=== PATIENT | male | born 1980 | race Caucasian/White ===

== ENCOUNTER 2017-10-08 21:08 | Emergency (ER) | payer OTHER ==
[~2017-10-08] VITALS: Ht 180.3 cm; Wt 83.9 kg
[~2017-10-08 21:08] MED LIST: ACETAMINOPHEN325 M1 PO; ATIVAN0.5 MG PO; MIRALAX17 GM PO; PERCOCET PO; VISTARIL 25 MG25 M1 PO
[2017-10-08] MEDS ORDERED: KEFLEX500 M1 PO (22:29)
[2017-10-08] MEDS ORDERED: NORCO 5-325 TA1 EACH PO (22:29)
== END 2017-10-08 22:49 | disposition home or self-care (01) ==
LOC: ER 21:08
DX: S61.241A Puncture wound with foreign body of left index finger without damage to nail, initial encounter (principal); W31.0XXA Contact with mining and earth-drilling machinery, initial encounter; Y93.89 Activity, other specified; Y92.89 Other specified places as the place of occurrence of the external cause; Y99.8 Other external cause status; Z88.5 Allergy status to narcotic agent; Z91.040 Latex allergy status

== ENCOUNTER 2019-06-27 18:15 | Emergency (ER) | payer OTHER ==
[~2019-06-27] VITALS: Ht 182.9 cm; Wt 90.7 kg
[~2019-06-27 18:15] MED LIST changes: +KEFLEX500 M1 PO; +NORCO 5-325 TA1 EACH PO
[2019-06-27 18:18] VITALS: BP 138/84
== END 2019-06-27 19:10 | disposition home or self-care (01) ==
LOC: ER 18:15
DX: S61.412A Laceration without foreign body of left hand, initial encounter (principal); Z91.040 Latex allergy status; Z88.6 Allergy status to analgesic agent; W26.8XXA Contact with other sharp object(s), not elsewhere classified, initial encounter; Y93.89 Activity, other specified; Y92.89 Other specified places as the place of occurrence of the external cause; Y99.8 Other external cause status

== ENCOUNTER 2020-05-24 15:54 | Emergency (ER) | payer OTHER ==
[~2020-05-24] VITALS: Ht 182.9 cm; Wt 99.8 kg
[2020-05-24] MEDS ORDERED: SERTRALINE HCL100 MG PO (16:01)
[2020-05-24 16:54] LABS: HEMATOCRIT 45.3 % (42.0-52.0); HEMOGLOBIN 15.4 gm/dL (14.0-18.0); MCH 28.8 pg (26.0-34.0); MCV 84.7 fL (80.0-100.0); RBC 5.34 mil/uL (4.50-6.00); RDW 14.7 % (10.5-14.5); WBC 5.8 thou/uL (4.0-11.0)
[2020-05-24 17:14] LABS: URINE BILIRUBIN NEGATIVE (Negative); URINE BLOOD NEGATIVE (Negative); URINE CLARITY CLEAR; URINE COLOR YELLOW; URINE GLUCOSE-RANDOM* NEGATIVE (Negative); URINE KETONES NEGATIVE (Negative); URINE LEUKOCYTES-REFLEX NEGATIVE (Negative); URINE NITRITE-REFLEX NEGATIVE (Negative); URINE PROTEIN (DIPSTICK) NEGATIVE (Negative); URINE SPECIFIC GRAVITY 1.015 (1.005-1.035); URINE UROBILINOGEN 0.2 E.U./dl (0.2-1.0)
[2020-05-24 17:15] LABS: CALCIUM 8.7 mg/dL (8.5-10.1)
[2020-05-24 17:21] LABS: ALBUMIN 4.1 g/dL (3.4-5.0); TOTAL BILIRUBIN 0.8 mg/dL (0.2-1.0)
[2020-05-24 17:43] VITALS: BP 122/71
== END 2020-05-24 17:48 | disposition home or self-care (01) ==
LOC: ER 15:54
PROVIDERS: Nurse Practitioner Family
DX: R10.13 Epigastric pain (principal); Z79.899 Other long term (current) drug therapy; Z91.040 Latex allergy status; Z88.5 Allergy status to narcotic agent

== ENCOUNTER 2020-10-03 08:42 | Inpatient (IN) | payer OTHER ==
[~2020-10-03] VITALS: Ht 182.9 cm; Wt 100.4 kg
[~2020-10-03 08:42] MED LIST changes: +SERTRALINE HCL100 MG PO
[2020-10-03 08:55] VITALS: BP 117/73
[2020-10-03] MEDS ORDERED: SERTRALINE HCL100 MG PO (09:00)
[2020-10-03 09:22] LABS: ABSOLUTE NEUTROPHILS 3.9 thou/uL (1.4-8.2); BASOPHILS 1.5 % (0.0-2.0); EOSINOPHILS 4.9 % (0.0-3.0); HEMATOCRIT 45.6 % (42.0-52.0); HEMOGLOBIN 15.9 gm/dL (14.0-18.0); LYMPHOCYTES 20.1 % (24.0-44.0); MCH 29.4 pg (26.0-34.0); MCHC 34.9 g/dL (28.0-37.0); MCV 84.4 fL (80.0-100.0); MONOCYTES 11.8 % (1.0-8.0); PLATELET COUNT 270 thou/uL (150-400); POLYS 61.7 % (36.0-66.0); RDW 13.5 % (10.5-14.5); WBC 6.4 thou/uL (4.0-11.0)
[2020-10-03 09:27] LABS: ANION GAP 9 mmol/L (7-16); BUN 12 mg/dL (7-18); CALCIUM 8.7 mg/dL (8.5-10.1); CHLORIDE 107 mmol/L (98-107); CO2 24 mmol/L (21-32); CREATININE 1.2 mg/dL (0.7-1.3); GLUCOSE 104 mg/dL (74-106); POTASSIUM 4.1 mmol/L (3.5-5.1); SODIUM 140 mmol/L (136-145)
[2020-10-03 09:37] LABS: LIPASE 1204 U/L (73-393); SGOT 15 U/L (15-37); SGPT 28 U/L (16-63); TOTAL BILIRUBIN 0.5 mg/dL (0.2-1.0); TOTAL PROTEIN 6.9 g/dL (6.4-8.2); TROPONIN-I <0.06 ng/mL (<0.06)
--- NOTE | 2020-10-03 11:22 | EKG ---
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1980 Requested By: Morgan Coleman Order Number: [id number] MD: Reece Godwin Measurements Intervals [place] Rate: 83 P: 20 UT: 195 QRS: 104 QRSD: 99 T: 40 QT: 391 QTc: 460 Interpretive Statements Sinus rhythm Probable left atrial enlargement Right axis deviation Probable anteroseptal infarct, old Compared to ECG 07/08/2014 07:55:06 Right-axis deviation now present Myocardial infarct finding now present Incomplete right bundle-branch block no longer present Electronically Signed On 10-03-2020 11:22:48 CDT by Reece Godwin [email or web address] <ELECTRONICALLY SIGNED> By: Reece Godwin MD, [facility] 10/03/20 1122 0845 [id number] Reece Godwin MD, [facility] /EPI
[2020-10-03 12:23] LABS: TRIGLYCERIDE 192 mg/dL (<150); VLDL 38 mg/dL (<40)
[2020-10-03 12:40] LABS: CHOLESTEROL 218 mg/dL (<200); HDL CHOLESTEROL 35 mg/dL (>40); LDL CHOLESTEROL 145 mg/dL (<100); TC:HDL 6.2 Ratio (Not establshd)
[2020-10-03 13:26] VITALS: BP 118/67
[2020-10-03 14:11] VITALS: BP 128/85
--- NOTE | 2020-10-03 14:24 | EXE ---
[facility] [place] [address] STRESS ECHOCARDIOGRAM Name: LA DIGGS Room #: 170-10 ADM IN .R.#: [id number] Admission: 10/03/20 Attend Phys: Jose Alberto Barron MD Discharge: Date of : 82 Report #: [id number] THIS REPORT FOR: cc: FAM - Family physician unknown FAM - Family physician unknown Alin Angela MD ~ APPROVED REPORT Study performed: 10/03/2020 12:36:27 Exam: Stress Echocardiogram Indication: Chest pain Patient Location: ER Stress Nurse: RAYMOND Solis Status: routine Ht: 6 ft 0 in HR: 73 bpm BP: 135/66 mmHg Rhythm: NSR Procedure The patient underwent an Exercise Stress Test using the Juan Pablo Protocol. Blood pressure, heart rate, and EKG were monitored. An Echocardiogram was performed by bmw service technician in four stages in quad fashion. At peak stress, four selected images were obtained and placed side by side with resting images for comparison. Stress Test Details Stress Test: Exercise stress testing was performed using a Juan Pablo protocol. HR Resting HR: 73 bpm Max Heart Rate (APMHR): 181 bpm Max HR Achieved: 184 bpm Target HR (85% APMHR): 153 bpm % of APMHR: 101 Recovery HR: 107 bpm HR response to stress: Normal HR response to stress BP Resting BP: 135/66 mmHg Max BP: 156/50 mmHg Recovery BP: 136/70 mmHg BP response to stress: Normal blood pressure response to stress. ECG [facility] [address] [place] [address] STRESS ECHOCARDIOGRAM Name: LA DIGGS Room #: 170-10 ADM IN ..#: [id number] Admission: 10/03/20 Attend Phys: Jose Alberto Barron MD Discharge: Date of : 82 Report #: [id number] Resting ECG: Sinus Rhythm Stress ECG: Sinus Tachycardia Arrhythmia: VPC's Recovery ECG: Sinus Rhythm Clinical Reason for Termination: Maximal effort, Completed protocol Stress Symptoms: Dyspnea Exercise duration: 9 min 14 sec Highest Stage Achieved: Stage 4: 4.2 mph at 16% grade. Exercise capacity: 11 METs Stress ECG Conclusion 1. Subjectively negative for ischemia 2. Electrocardiographically negative for ischemia 3. No significant exercise-induced dysrhythmias 4. Satisfactory functional capacity Pre-Stress Echo The resting Echocardiogram showed normal left ventricular contractility with an estimated Ejection Fraction of about 55-60%. The resting echocardiogram demonstrated normal wall motion in all wall segments. Post-Stress Echo The stress Echocardiogram showed normal left ventricular contractility with an estimated Ejection Fraction of about 65-70%. Compared to rest, there were no stress-induced wall motion abnormalities. Conclusion Clinical Response: Non-ischemic Exercise Capacity: Satisfactory Stress ECG Response: Non-ischemic Stress Echo Images: Non-ischemic 1. Low ischemic risk study Other Information Study Quality: Fair Technically limited study due to pectus chest. [facility] [address] [place] [address] STRESS ECHOCARDIOGRAM Name: DONTAELA Room #: 170-10 ADM IN .R.#: [id number] Admission: 10/03/20 Attend Phys: Jose Alberto Barron MD Discharge: Date of : 82 Report #: [id number] <Conclusion> 1. Low ischemic risk study <ELECTRONICALLY SIGNED> By: Alin Angela MD 10/03/20 1423 22 22 Alin Angela MD /INF
--- NOTE | 2020-10-03 14:53 | EKG ---
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 : 1980 Requested By: Jose Alberto Barron Order Number: [id number] MD: Reece Godwin Measurements Intervals [place] Rate: 76 P: -2 CT: 207 QRS: 71 QRSD: 102 T: 35 QT: 407 QTc: 458 Interpretive Statements Sinus rhythm Borderline prolonged CT interval Compared to ECG 10/03/2020 08:45:38 Right-axis deviation no longer present Myocardial infarct finding no longer present Electronically Signed On 10-03-2020 14:53:05 CDT by Reece Godwin [email or web address] <ELECTRONICALLY SIGNED> By: Reece Godwin MD, [facility] 10/03/20 1453 0955 0955 Reece Godwin MD, [facility] /EPI
--- NOTE | 2020-10-03 16:46 | NUR ---
Patient arrived from ED via wheelchair. His was at bedside. New ID band appiled. ED band cut off. Nurse went over consent to treat paperwork, fall risk, and agreement he signed and put into chart. Telemerty monitor appiled. pain noted 4/10 left flank. [place] given right before transfer. Patient states morphine given in ED helped his pain more than [place]. Nurse called Dr. Barron to ask for morphine for his pain and he is going to add it. NS at 75 via left AC. Currently resting in bed.
[2020-10-03 20:00] VITALS: BP 126/80
[2020-10-04 04:00] VITALS: BP 129/75
--- NOTE | 2020-10-04 06:30 | NUR ---
patient aox4 makes needs known.pain controlled this shift. patient torelated clear liquids. patient is up at tim. patient in bed asleep at this time breathing regular and unlaboured.
[2020-10-04 06:35] LABS: HEMATOCRIT 43.3 % (42.0-52.0); HEMOGLOBIN 14.8 gm/dL (14.0-18.0); MCH 29.1 pg (26.0-34.0); MCHC 34.1 g/dL (28.0-37.0); MCV 85.4 fL (80.0-100.0); RBC 5.08 mil/uL (4.50-6.00); RDW 13.6 % (10.5-14.5); WBC 4.6 thou/uL (4.0-11.0)
[2020-10-04 06:49] LABS: CALCIUM 8.3 mg/dL (8.5-10.1); CREATININE 1.1 mg/dL (0.7-1.3); POTASSIUM 4.1 mmol/L (3.5-5.1)
[2020-10-04 07:00] LABS: LIPASE 236 U/L (73-393); TROPONIN-I <0.06 ng/mL (<0.06)
[2020-10-04 07:07] VITALS: BP 121/80
--- NOTE | 2020-10-04 13:20 | NUR ---
PT ADMITTED RELATED TO PANCREATITIS. CM REVIEWED CHART AND SPOKE WITH CARE TEAM. CM MET WITH PT AND SPOUSE AT BEDSIDE THIS DAY. PT APPEARED TO BE A&O X4. CM ROLE INTRODUCED. PT INDICATED HE LIVES IN A HOUSE WITH HIS SPOUSE WITH NO STEPS TO ENTER AND 6 STEPS INSIDE. 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 PT'S PCP IS DR. ABDI SPENCER AT [facility]. CARE TEAM HAVE COUNSELED PT ON ALCOHOL CESSATION. GI AND CARDS CONSULTED. GI STARTED PT ON FULL LIQUID DIET. DIET TO PROGRESS TOLERATED. CM FOLLOWING REGARDING DC PLANNING.
[2020-10-04 14:21] VITALS: BP 121/80
--- NOTE | 2020-10-04 14:30 | NUR ---
ASSUMED PT CARE THIS AM. PT A&OX4, ABLE TO MAKE NEEDS KNOWN. PATIENT COMPLAINS OF ABDOMINAL PAIN THAT RESPONDS WELL TO PAIN MEDS GIVEN PER EMAR. PATIENT REMAINS CONTINENT, USING A URINAL WHEN NEEDED. PATIENT IS ON ROOM AIR. IV PATENT, FLUIDS INFUSING. PATIENT UP AD AJITH. TOLERATING DIET WELL. CALL LIGHT WITHIN REACH.
== END 2020-10-04 15:15 | disposition home or self-care (01) | DRG 440 ==
LOC: ER 08:42 → EROBS 12:02 → 4W 12:02
PROVIDERS: Emergency Medicine; ADMIT Hospitalist; ATTEND Hospitalist
DX: K85.90 Acute pancreatitis without necrosis or infection, unspecified (principal); F32.9 Major depressive disorder, single episode, unspecified; K21.9 Gastro-esophageal reflux disease without esophagitis; E78.1 Pure hyperglyceridemia; F41.9 Anxiety disorder, unspecified; R07.9 Chest pain, unspecified; Z79.899 Other long term (current) drug therapy; Z88.6 Allergy status to analgesic agent; Z91.040 Latex allergy status; Q05.9 Spina bifida, unspecified; Q85.00 Neurofibromatosis, unspecified
CPT/HCPCS: 10045